=== PATIENT | female | born 1975 | race Caucasian/White ===

== ENCOUNTER 2021-10-06 15:40 | Emergency (ER) | payer OTHER ==
[~2021-10-06] VITALS: Ht 160 cm; Wt 84.4 kg
[2021-10-06 15:40] VITALS: BP_SYST 167
--- NOTE | 2021-10-06 15:40 | NUR ---
BROUGHT BACK TO BED #8 AND TRIAGED. WILL GIVE REPORT TO NURSE
--- NOTE | 2021-10-06 15:44 | NUR ---
PT WITH MULTIPLE COMPLAINTS, PT STATES FOR LAST 4 DAYS MIGRAINES, EYES WERE CROSSED AND NOW RESOLVED, SLURRED SPEECH, BAD TEMPER AND INABILITY TO SLEEP. PT STATES THAT SHE MAY HAVE HAD A SEIZURE 3 DAYS AGO, SPOUSE WITNESSED INCIDENT. PT STATES SHE RECENTLY STARTED TAKING PROGESTERONE A FEW DAYS AGO AND THOUGHT THESE MIGHT BE SIDE EFFECTS.
--- NOTE | 2021-10-06 15:50 | NUR ---
REPORT GIVEN TO CHARGE NURSE SAPPHIRE
[2021-10-06 17:18] LABS: BARBITURATE, URINE NEGATIVE (NEG <=200); BENZODIAZEPINE, URINE POSITIVE (NEG <=150); CANNABINOID, URINE NEGATIVE (NEG <=50); COCAINE, URINE NEGATIVE (NEG <=150); METHAMPHETAMINES SCREEN,URINE NEGATIVE (NEG <=500); OPIATE, URINE POSITIVE (NEG <=100); PHENCYCLIDINE SCREEN,URINE NEGATIVE (NEG <=25); UR TRICYCLIC ANTIDEPRESSANTS NEGATIVE (NEG <=300); URINE AMPHETAMINE POSITIVE (NEG <=500); URINE METHADONE NEGATIVE (NEG <=200); URINE OXYCODONE SCREEN NEGATIVE (NEG <=100); URINE PROPOXYPHENE SCREEN NEGATIVE (NEG <=300)
--- NOTE | 2021-10-06 17:22 | NUR ---
RECEIVED REPORT FROM CHARGE NURSE SAPPHIRE AND WILL ASSUME CARE.
--- NOTE | 2021-10-06 17:23 | NUR ---
SLEEPING QUIETLY, NO CHANGES.
--- NOTE | 2021-10-06 17:26 | NUR ---
PT UP TO RESTROOM, AMBULATION WITH STEADY GAIT.
[2021-10-06 17:48] LABS: ANION GAP 7 (5-15); CALCIUM 9.2 mg/dL (8.4-11.0); CHLORIDE 104 mmol/L (98-107); CREATININE 0.71 mg/dL (0.55-1.30); GLUCOSE 96 mg/dL (70-99); POTASSIUM 4.4 mmol/L (3.5-5.1); SODIUM SERUM 140 mmol/L (136-145); UREA NITROGEN, BLOOD 14 mg/dL (8-21)
[2021-10-06 17:49] LABS: GFR AFRICAN AMERICAN 114 mL/min (>90)
[2021-10-06 17:54] LABS: BASOPHILS # (AUTO) 0.1 K/uL (0.0-0.2); BASOPHILS % (AUTO) 0.6 % (0.0-2.0); EOSINOPHILS # (AUTO) 0.6 K/uL (0.0-0.4); EOSINOPHILS % (AUTO) 6.4 % (0.0-4.0); HEMATOCRIT 39.9 % (36-48); HEMOGLOBIN 13.7 g/dL (12.0-16.0); LYMPHOCYTES # (AUTO) 2.7 K/uL (1.0-5.5); MEAN CORPUSCULAR HEMOGLOBIN 31 pg (27-31); MEAN CORPUSCULAR HGB CONC 34 % (32-36); MEAN CORPUSCULAR VOLUME 91 fL (79.0-98.0); MONOCYTES # (AUTO) 0.8 K/uL (0.0-1.0); MONOCYTES % (AUTO) 7.9 % (1.7-9.3); NEUTROPHILS # (AUTO) 5.9 K/uL (1.8-7.7); NEUTROPHILS % (AUTO) 58.1 % (40.0-70.0); PLATELET COUNT (AUTO) 304 K/uL (130-430); RED BLOOD CELL COUNT(AUTO) 4.39 MIL/uL (4.2-6.2); RED CELL DISTRIBUTION WIDTH 12.6 % (9.0-15.0); WHITE BLOOD COUNT (AUTO) 10.1 K/uL (4.8-10.8)
[2021-10-06 18:01] LABS: ALANINE AMINOTRANSFERASE 39 U/L (12-78); ALBUMIN 3.4 g/dL (3.4-4.8); ASPARTATE AMINOTRANSFERASE 48 U/L (10-37); TOTAL BILIRUBIN 0.6 mg/dL (0.0-1.0)
[2021-10-06 18:02] LABS: ALCOHOL, BLOOD < 3 mg/dL (<10)
--- NOTE | 2021-10-06 18:25 | NUR ---
DR HACKETT AT BEDSIDE SPEAKING WITH FAMILY AND PT.
--- NOTE | 2021-10-06 18:33 | NUR ---
Patient given written and verbal discharge instructions and verbalizes understanding. ER MD discussed with patient the results and treatment provided. Patient in stable condition. ID arm band removed. Rx of NONE given. Patient educated on pain management and to follow up with PMD. Pain Scale 0/10. Opportunity for questions provided and answered. Medication side effect fact sheet provided. WORK NOTE GIVEN FOR PT TO BE CLEARED BY NEUROLOGY PRIOR TO RETURNING TO WORK.
== END 2021-10-06 18:30 | disposition home or self-care (01) ==
LOC: SED 15:40
DX: R56.9 Unspecified convulsions (principal); R51.9 Headache, unspecified; R47.81 Slurred speech; R20.2 Paresthesia of skin; Z79.899 Other long term (current) drug therapy
CPT/HCPCS: 99284; 70450; 80307; 80053; 84703; 85025; 36415; 76376; 81025; 83605; G0482

== ENCOUNTER 2021-12-21 15:31 | Emergency (ER) | payer OTHER ==
[~2021-12-21] VITALS: Ht 160 cm; Wt 84.4 kg
[2021-12-21 15:51] VITALS: BP_SYST 176
--- NOTE | 2021-12-21 17:45 | NUR ---
PT in waiting room [id number] CC shaking leg. Pt states leg shakes uncontrollably for a period of 90 minutes then is at rest. Pt states began two new psych medications Abilify and Lexapro within the last month and may be the result of side effects. Presents to ER out of an abundance of caution to rule out biological issues. Denies SOB, Denies numbness, tingling.
--- NOTE | 2021-12-21 18:01 | NUR ---
ER DR. BREWER EXAMINING PT IN TRIAGE
[2021-12-21 18:43] LABS: BASOPHILS # (AUTO) 0.1 K/uL (0.0-0.2); BASOPHILS % (AUTO) 0.9 % (0.0-2.0); EOSINOPHILS # (AUTO) 0.7 K/uL (0.0-0.4); EOSINOPHILS % (AUTO) 4.7 % (0.0-4.0); HEMATOCRIT 42.5 % (36-48); HEMOGLOBIN 14.8 g/dL (12.0-16.0); LYMPHOCYTES # (AUTO) 2.8 K/uL (1.0-5.5); LYMPHOCYTES % (AUTO) 19.6 % (20.5-51.5); MEAN CORPUSCULAR HEMOGLOBIN 32 pg (27-31); MEAN CORPUSCULAR HGB CONC 35 % (32-36); MEAN CORPUSCULAR VOLUME 91 fL (79.0-98.0); MONOCYTES # (AUTO) 1.3 K/uL (0.0-1.0); MONOCYTES % (AUTO) 9.4 % (1.7-9.3); NEUTROPHILS # (AUTO) 9.2 K/uL (1.8-7.7); NEUTROPHILS % (AUTO) 65.4 % (40.0-70.0); PLATELET COUNT (AUTO) 320 K/uL (130-430); RED BLOOD CELL COUNT(AUTO) 4.67 MIL/uL (4.2-6.2); RED CELL DISTRIBUTION WIDTH 13.3 % (9.0-15.0)
[2021-12-21 18:59] LABS: CALCIUM 9.3 mg/dL (8.4-11.0); CREATININE 1.08 mg/dL (0.55-1.30); POTASSIUM 3.6 mmol/L (3.5-5.1)
[2021-12-21 18:59] LABS: BILIRUBIN,URINE NEGATIVE (NEGATIVE); BLOOD, URINE NEGATIVE (NEGATIVE); CLARITY/URINE CLEAR (CLEAR); COLOR,URINE YELLOW (YELLOW); GLUCOSE,URINE NEGATIVE (NEGATIVE); KETONES,URINE NEGATIVE (NEGATIVE); LEUKOCYTE ESTERASE ,URINE NEGATIVE (NEGATIVE); NITRITE, URINE NEGATIVE (NEGATIVE); PROTEIN URINE NEGATIVE (NEGATIVE); UROBILINOGEN,URINE 0.2 (0.2-1.0)
[2021-12-21 19:11] LABS: ALBUMIN 4.1 g/dL (3.4-4.8); TOTAL BILIRUBIN 1.1 mg/dL (0.0-1.0)
[2021-12-21 19:33] LABS: BARBITURATE, URINE NEGATIVE (NEG <=200); BENZODIAZEPINE, URINE POSITIVE (NEG <=150)
[2021-12-21 19:34] LABS: CANNABINOID, URINE NEGATIVE (NEG <=50); COCAINE, URINE NEGATIVE (NEG <=150); METHAMPHETAMINES SCREEN,URINE NEGATIVE (NEG <=500); OPIATE, URINE NEGATIVE (NEG <=100); PHENCYCLIDINE SCREEN,URINE NEGATIVE (NEG <=25); UR TRICYCLIC ANTIDEPRESSANTS NEGATIVE (NEG <=300); URINE AMPHETAMINE NEGATIVE (NEG <=500); URINE METHADONE NEGATIVE (NEG <=200); URINE OXYCODONE SCREEN NEGATIVE (NEG <=100); URINE PROPOXYPHENE SCREEN NEGATIVE (NEG <=300)
--- NOTE | 2021-12-21 19:50 | NUR ---
Patient given written and verbal discharge instructions and verbalizes understanding. ER MD discussed with patient the results and treatment provided. Patient in stable condition. ID arm band removed. IV catheter removed intact and dressing applied, no active bleeding. Rx of n/a given. Patient educated on pain management and to follow up with PMD. Pain Scale . Opportunity for questions provided and answered. Medication side effect fact sheet provided. DR. BREWER SEEING PATIENT PRIOR TO DISCHARGE.
== END 2021-12-21 19:50 | disposition home or self-care (01) ==
LOC: SED 15:31
DX: G25.2 Other specified forms of tremor (principal); Z79.899 Other long term (current) drug therapy
CPT/HCPCS: 36415; 71045; 80053; 80307; 81003; 81025; 82550; 84702; 85025; 99284